=== PATIENT | male | born 1960 | race African-American/Black ===

== ENCOUNTER 2018-01-20 08:00 | Inpatient (IN) | payer OTHER ==
--- OUTSIDE RECORDS SUMMARY | 2018-01-20 08:03 | XMS REPORT | Clinical Summary ---
:1960 Author Organization [facility] Address [address] [place] [address] Phone Care Team Providers Name Role Phone Unavailable Primary Care Provider Unavailable Allergies No Known Allergies Current Medications Prescription Sig. Disp. Refills Start Date End Date Status carvedilol (COREG) Take 25 mg by Active 25 MG tablet mouth 2 (two) times daily with breakfast and dinner. omeprazole Take 40 mg by Active (PRILOSEC) 40 MG mouth as needed. capsule carvedilol (COREG) Take 12.5 mg by 10/12/2017 Discontinued 12.5 MG tablet mouth 2 (two) times daily with breakfast and dinner. Active Problems Problem Noted Date Abdominal pain 08/25/2014 Pancreatic pseudocyst 08/07/2014 Pancreatitis, chronic (HCC) 08/07/2014 Encounters Date Type Specialty Care Team Description 10/19/2017 Hospital Encounter Gastroenterology Hola Malone MD 10/19/2017 Procedure Pass Gastroenterology 10/19/2017 Surgery Gastroenterology Hola Malone UPPER ENDOSCOPY 10/18/2017 Anesthesia Event Gastroenterology Quoc Davison MD 10/12/2017 Hospital Encounter Pre-Admission Testing after 01/19/2017 Social History Tobacco Use Types Packs/Day Years Used Date Current Some Day Smoker Cigarettes 20 Smokeless Tobacco: Never Used Tobacco Cessation: Ready to Quit: Yes; Counseling Given: Yes Comments: 1-3 cigarettes per week Alcohol Use Drinks/Week oz/Week Comments Yes seldom Sex Assigned at Date Recorded Not on file Last Filed Vital Signs Vital Sign Reading Time Taken Blood Pressure 128/81 10/19/2017 5:40 PM [employer] Pulse 66 10/19/2017 5:40 PM [employer] Temperature 36.4 C (97.5 F) 10/19/2017 5:40 PM [employer] Respiratory Rate 20 10/19/2017 5:40 PM [employer] Oxygen Saturation 98% 10/19/2017 5:40 PM [employer] Inhaled Oxygen Concentration - - Weight 142.7 kg (314 lb 9.6 oz) 10/19/2017 3:11 PM [employer] Height 188 cm (6' 2") 10/12/2017 2:44 PM [employer] Body Mass Index 40.39 10/19/2017 3:11 PM [employer] Plan of Treatment Health Maintenance Due Date Last Done Comments INFLUENZA VACCINE 05/16/2018 Implants Implanted Type Area Machine Washer Device Expiration Model / Identifier Date Serial / Lot Advanix Biliary Double Pigtail N/A: Bile [employer] 08/15/2016 / Implanted: Qty: 2 on 08/27/2014 by Hola Malone MD Duct [id number] / [id number] Procedures Procedure Name Priority Date/Time Associated Diagnosis Comments UPPER ENDOSCOPY 10/19/2017 3:30 PM [employer] Pancreatic pseudocyst after 01/19/2017 Results REPORT OF PROCEDURE - ENDOSCOPY URL (10/19/2017 5:32 PM)after 01/19/2017
[2018-01-20 08:42] LABS: Absolute Monocytes 0.7 K/uL (0.1-1.3); Absolute Neutrophil 7.5 K/uL (1.8-8.0); Basophils % 1.2 % (0-1.3); Eosinophils % 2.1 % (0-4.4); Hematocrit 42.9 % (39.6-49.0); Lymphocytes % 19.1 % (15.3-44.8); MCH 30.1 pg (27.0-35.0); MCV 88.9 fL (80-100); MPV 11.7 fL (7.6-11.3); Monocytes % 6.6 % (3.3-12.3); RBC Red Blood Cell Count 4.83 M/uL (4.33-5.43)
[2018-01-20 08:49] LABS: Potassium 3.8 mEq/L (3.6-5.0)
[2018-01-20 08:55] LABS: Albumin 4.1 g/dL (3.2-5.5); Bilirubin Direct 0.2 mg/dL (0-0.2); Bilirubin Total 0.8 mg/dL (0.3-1.2); Protein, Total 7.5 g/dL (6.0-8.3)
--- NOTE | 2018-01-20 10:09 | RAD REPORT ---
EXAM DESCRIPTION: US - Abdomen Exam Limited - 01/20/2018 9:09 am CLINICAL HISTORY: Abdominal pain COMPARISON: CT study June 2016 FINDINGS: No gallstones are identifiable on today's study. No measurable quantity of sludge. There i s no wall thickening or pericholecystic fluid. No suspicious gallbladder finding identifiable. No common duct stone or biliary tree dilatation identified. IMPRESSION: Normal gallbladder and biliary tree ultrasound. No stone or sludge identifiable to matc h patient provided history.
[2018-01-20] MEDS ORDERED: SUCRALFATE 1GM/10ML UCUP PO ONE (11:00)
--- NOTE | 2018-01-20 11:49 | ER ---
Nurse's Notes [facility] Name: Nathaniel Perez Age: 57 yrs Sex: Male : 1960 Arrival Date: 01/20/2018 Time: 08:01 Bed 8 Private MD: Fuad Trujillo H Diagnosis: Acute pancreatitis Presentation: 01/20 08:08 Presenting complaint: Patient states: upset stomach and diarrhea x 2 weeks. Epigastric ss discomfort that radiates towards upper R quadrant x 3-4 days. Pt states, "I think it's my gallbladder.". Transition of care: patient was not received from another setting of care. Onset of symptoms was January 06, 2018. Risk Assessment: Do you want to hurt yourself or someone else? Patient reports no desire to harm self or others. Initial Sepsis Screen: Does the patient meet any 2 criteria? No. Patient's initial sepsis screen is negative. Does the patient have a suspected source of infection? No. Patient's initial sepsis screen is negative. Care prior to arrival: None. 08:08 Method Of Arrival: Ambulatory ss 08:08 Acuity: NIKOLE 3 ss Historical: - Allergies: 08:24 No Known Allergies; ss - Home Meds: 08:24 carvedilol 25 mg oral tab 1 tab 2 times per day [Active]; ss - PMHx: 08:24 Hypertension; Pancreatitis; ss - PSHx: 08:24 pancreatic stents placed and removed; ss - Immunization history:: Adult Immunizations up to date. - Social history:: Smoking status: Patient uses tobacco products, 1 pack per week. - Ebola Screening: : Patient denies exposure to infectious person Patient denies travel to an Ebola-affected area in the 21 days before illness onset. Screenin:16 Abuse screen: Denies threats or abuse. Denies injuries from another. Nutritional sv screening: No deficits noted. Tuberculosis screening: No symptoms or risk factors identified. Fall Risk None identified. Assessment: 08:20 General: Appears in no apparent distress. uncomfortable, well developed, Behavior is sv calm, cooperative, appropriate for age. Pain: Complains of pain in epigastric area and right upper quadrant Pain currently is 4 out of 10 on a pain scale. Is continuous. Neuro: Level of Consciousness is awake, alert, obeys commands, Oriented to person, place, time, situation, Moves all extremities. Full function Gait is steady. Respiratory: Respiratory effort is even, unlabored, Respiratory pattern is regular, symmetrical. GI: Abdomen is round Abd is soft X 4 quads. Derm: Skin is normal. 11:06 Reassessment: Patient appears in no apparent distress at this time. No changes from previously documented assessment. Patient and/or family updated on plan of care and expected duration. Pain level reassessed. Patient is alert, oriented x 3, equal unlabored respirations, skin warm/dry/pink. 12:03 Reassessment: pt updated a bed assignment has been made, pt stated understanding, sg attempt to call report, nurse for 409 unavailable d/t med pass at this time, awaiting a call back from receiving nurse, pt stated understanding, pt remains at bedside. 12:15 Reassessment: Patient appears in no apparent distress at this time. Patient and/or sv family updated on plan of care and expected duration. Pain level reassessed. Patient is alert, oriented x 3, equal unlabored respirations, skin warm/dry/pink. Vital Signs: 08:24 BP 168 / 125; Pulse 91; Resp 16; Temp 97.2(TE); Pulse Ox 98% on R/A; Weight 140.61 kg; Height 6 ft. 2 in. (187.96 cm); Pain 4/10; 09:37 BP 178 / 112; Pulse 70; Resp 18; Pulse Ox 95% ; sv 10:26 BP 167 / 117; Pulse 76; Resp 18; Pulse Ox 98% ; sv 12:14 BP 143 / 102; Pulse 75; Resp 18; Pulse Ox 99% ; sv 08:24 Body Mass Index 39.80 (140.61 kg, 187.96 cm) ED Course: 08:01 Patient arrived in ED. sb2 08:02 Fuad Trujillo DO is Private Physician. sb2 08:09 Irving Alberts MD is Attending Physician. gs 08:14 Susy Dooley, MAURICIO is Primary Nurse. sv 08:16 ED physician to see patient. sv 08:16 Arm band placed on right wrist. sv 08:16 Patient has correct armband on for positive identification. Bed in low position. Pulse sv ox on. NIBP on. 08:22 Triage completed. 08:25 Initial lab(s) drawn, by me, sent to lab. Inserted saline lock: 20 gauge in right sv antecubital area, using aseptic technique. Blood collected. Flushed right antecubital with 5 ml normal saline. 08:54 Patient taken to ultrasound. hr 09:09 US Abdomen Limited In Process Unspecified. EDMS 11:00 CT completed. Patient tolerated procedure well. Patient moved to CT via wheelchair. kw1 Patient moved back from CT. 11:01 CT Abd/Pelvis - Without Cont In Process Unspecified. EDMS 11:11 Awaiting radiology results. sv 11:20 EKG done, by fork lift technician. reviewed by Irving Alberts MD. at1 11:48 Zeb Espinoza MD is Hospitalizing Provider. gs 12:03 No provider procedures requiring assistance completed. Patient admitted, IV remains in sg place. intact, No redness/swelling at site. Administered Medications: 11:06 Drug: CarafATE 1 grams Route: PO; sv 12:09 Follow up: Response: No adverse reaction sv 11:55 Drug: NS 0.9% 1000 ml Route: IV; Rate: 125 ml/hr; Site: right antecubital; sg 11:55 Drug: fentaNYL (PF) 50 mcg Route: IVP; Site: right antecubital; sg 11:55 Drug: Zofran 4 mg Route: IVP; Site: right antecubital; sg Outcome: 11:49 Decision to Hospitalize by Provider. gs 12:15 Admitted to Tele accompanied by tech, family with patient, via wheelchair, room 409, sv with chart, Report called to Amanda MARTÍNEZ 12:15 Condition: stable 12:15 Instructed on the need for admit. 12:37 Patient left the ED. sv Signatures: Dispatcher [employer] EDSusy Sky, RN MAURICIO sv Brad Cobb, MAURICIO MARTÍNEZ sg Xenia Christianson hr Katia Marte, MAURICIO MARTÍNEZ Paula jordan, destination sign repairer EKG Tat1 Irving Alberts MD MD Nuria Moe kw1 Kellie Bowling sb2
--- NOTE | 2018-01-20 11:49 | EDPHYS ---
Physician Documentation [facility] Name: Nathaniel Perez Age: 57 yrs Sex: Male : 1960 Arrival Date: 01/20/2018 Time: 08:01 Bed 8 Private MD: Fuad Trujillo H ED Physician Irving Alberts HPI: 01/20 12:40 This 57 yrs old Black Male presents to ER via Ambulatory with complaints of Abdominal gs Pain, Rib Pain. 12:40 The patient presents with abdominal pain in the epigastric area. Onset: The gs symptoms/episode began/occurred 2 day(s) ago. The symptoms do not radiate. Associated signs and symptoms: Pertinent positives: diarrhea. The symptoms are described as crampy. Modifying factors: The symptoms are alleviated by nothing, the symptoms are aggravated by nothing. Severity of pain: At its worst the pain was moderate in the emergency department the pain is unchanged. The patient has experienced similar episodes in the past, a few times. Historical: - Allergies: 08:24 No Known Allergies; ss - Home Meds: 08:24 carvedilol 25 mg oral tab 1 tab 2 times per day [Active]; ss - PMHx: 08:24 Hypertension; Pancreatitis; ss - PSHx: 08:24 pancreatic stents placed and removed; ss - Immunization history:: Adult Immunizations up to date. - Social history:: Smoking status: Patient uses tobacco products, 1 pack per week. - Ebola Screening: : Patient denies exposure to infectious person Patient denies travel to an Ebola-affected area in the 21 days before illness onset. ROS: 12:40 All other systems are negative. gs Exam: 12:40 Head/Face: Normocephalic, atraumatic. Eyes: Pupils equal round and reactive to light, gs extra-ocular motions intact. Lids and lashes normal. Conjunctiva and sclera are non-icteric and not injected. Cornea within normal limits. Periorbital areas with no swelling, redness, or edema. ENT: Nares patent. No nasal discharge, no septal abnormalities noted. Tympanic membranes are normal and external auditory canals are clear. Oropharynx with no redness, swelling, or masses, exudates, or evidence of obstruction, uvula midline. Mucous membranes moist. Neck: Trachea midline, no thyromegaly or masses palpated, and no cervical lymphadenopathy. Supple, full range of motion without nuchal rigidity, or vertebral point tenderness. No Meningismus. Chest/axilla: Normal chest wall appearance and motion. Nontender with no deformity. No lesions are appreciated. Cardiovascular: Regular rate and rhythm with a normal S1 and S2. No gallops, murmurs, or rubs. Normal PMI, no JVD. No pulse deficits. Respiratory: Lungs have equal breath sounds bilaterally, clear to auscultation and percussion. No rales, rhonchi or wheezes noted. No increased work of breathing, no retractions or nasal flaring. Back: No spinal tenderness. No costovertebral tenderness. Full range of motion. Skin: Warm, dry with normal turgor. Normal color with no rashes, no lesions, and no evidence of cellulitis. MS/ Extremity: Pulses equal, no cyanosis. Neurovascular intact. Full, normal range of motion. Neuro: Awake and alert, GCS 15, oriented to person, place, time, and situation. Cranial nerves II-XII grossly intact. Motor strength 5/5 in all extremities. Sensory grossly intact. Cerebellar exam normal. Normal gait. 12:40 Constitutional: The patient appears alert, awake. 12:40 Abdomen/GI: Palpation: moderate abdominal tenderness, in the epigastric area, right upper quadrant and left upper quadrant. 13:19 ECG was reviewed by the Attending Physician. Vital Signs: 08:24 BP 168 / 125; Pulse 91; Resp 16; Temp 97.2(TE); Pulse Ox 98% on R/A; Weight 140.61 kg; ss Height 6 ft. 2 in. (187.96 cm); Pain 4/10; 09:37 BP 178 / 112; Pulse 70; Resp 18; Pulse Ox 95% ; sv 10:26 BP 167 / 117; Pulse 76; Resp 18; Pulse Ox 98% ; sv 12:14 BP 143 / 102; Pulse 75; Resp 18; Pulse Ox 99% ; sv 08:24 Body Mass Index 39.80 (140.61 kg, 187.96 cm) MDM: 08:20 Patient medically screened. gs 12:40 Differential diagnosis: cholecystitis, Cholelithiasis, pancreatitis, Peptic Ulcer gs Disease. Data reviewed: vital signs, nurses notes. Response to treatment: the patient's symptoms have mildly improved after treatment, and as a result, I will discharge patient. 01/20 08:21 Order name: Basic Metabolic Panel; Complete Time: 10:34 gs 01/20 08:21 Order name: CBC with Diff; Complete Time: 10:34 gs 01/20 08:21 Order name: Hepatic Function; Complete Time: 10:34 gs 01/20 08:21 Order name: Lipase; Complete Time: 10:34 gs 01/20 08:21 Order name: Urine Microscopic Only 01/20 12:10 Order name: CBC with Automated Diff EDMS 01/20 08:21 Order name: US Abdomen Limited; Complete Time: 10:34 01/20 10:40 Order name: CT Abd/Pelvis - Without Cont; Complete Time: 11:54 01/20 12:10 Order name: CBC with Automated Diff EDMS 01/20 12:10 Order name: Comprehensive Metabolic Panel EDMS 01/20 12:10 Order name: Comprehensive Metabolic Panel EDMS 01/20 12:10 Order name: Lipase EDMS 01/20 12:10 Order name: Lipase EDMS 01/20 08:21 Order name: IV Saline Lock; Complete Time: 08:33 01/20 08:21 Order name: Labs collected and sent; Complete Time: 08:33 01/20 11:04 Order name: EKG; Complete Time: 11:04 01/20 11:04 Order name: EKG - Nurse/Tech; Complete Time: 11:10 01/20 11:52 Order name: CONS Physician Consult EDMS 01/20 12:10 Order name: NPO EDMS EC:19 Rate is 83 beats/min. Rhythm is regular. IA interval is normal. QRS interval is normal. gs T waves are Normal. T waves are Flattened. No ST changes noted. Clinical impression: NSR w/ Non-specific ST/T Changes. Interpreted by me. Administered Medications: 11:06 Drug: CarafATE 1 grams Route: PO; sv 12:09 Follow up: Response: No adverse reaction sv 11:55 Drug: NS 0.9% 1000 ml Route: IV; Rate: 125 ml/hr; Site: right antecubital; sg 11:55 Drug: fentaNYL (PF) 50 mcg Route: IVP; Site: right antecubital; sg 11:55 Drug: Zofran 4 mg Route: IVP; Site: right antecubital; sg Disposition: 01/20/18 11:49 Hospitalization ordered by Zeb Espinoza for Inpatient Admission. Preliminary diagnosis is Acute pancreatitis. - Bed requested for Telemetry/MedSurg (Inpatient). - Status is Inpatient Admission. sv - Condition is Stable. - Problem is new. - Symptoms have improved. UTI on Admission? No Signatures: Dispatcher [employer] EDSusy Sky RN RN Demetrice Hargrove RN RN dw Gay, Steven, RN RN Katia Marte RN RN Irving Alberts MD MD gs Corrections: (The following items were deleted from the chart) 11:58 11:49 Hospitalization Ordered by Zeb Espinoza MD for Inpatient Admission. Preliminary diagnosis is Acute pancreatitis. Bed requested for Telemetry/MedSurg (Inpatient). Status is Inpatient Admission. Condition is Stable. Problem is new. Symptoms have improved. UTI on Admission? No. gs 12:37 11:58 01/20/2018 11:49 Hospitalization Ordered by Zeb Espinoza MD for Inpatient sv Admission. Preliminary diagnosis is Acute pancreatitis. Bed requested for Telemetry/MedSurg (Inpatient). Status is Inpatient Admission. Condition is Stable. Problem is new. Symptoms have improved. UTI on Admission? No. dw
[2018-01-20] MEDS ORDERED: ONDANSETRON 4 MG/2 ML VIAL ONE (11:50)
[2018-01-20] MEDS ORDERED: FENTANYL CITR 100 MCG/2 ML ONE (11:50)
[2018-01-20] MEDS ORDERED: NA CHLORIDE 0.9% 1,000 ML ONE (11:51)
--- NOTE | 2018-01-20 11:53 | RAD REPORT ---
EXAM DESCRIPTION: CT - Abdomen Pelvis Wo Contrast - 01/20/2018 11:00 am CLINICAL HISTORY: Epigastric pain, history of pancreatitis, history of of stent across the distal st omach COMPARISON: CT May 2016, CT imaging February 2014. TECHNIQUE: Axial [address] imaging of the abdomen and pelvis was performed without IV contrast. No IV contrast was given because of allergy, abnormal renal function, patient refusal or physician re quest. Oral contrast was given. All CT scans are performed using dose optimization technique as appropriate and may include automated exposure control or mA/KV adjustment according to patient size. FINDINGS: No suspicious findings in the lung bases. Liver and spleen show no suspicious findings. Gallbladder is contracted limiting assessment. No bilia ry tree dilatation. The pancreas shows chronic abnormalities. In the head and uncinate process region there is no discrete mass and no pancreatic dilatation seen. The body and tail of the pancreas show a chronic pancreatic duct dilatation that matches the May 2016 CT study. The patient likely has p ancreatic duct stenosis from prior pancreatitis episode. A new or enlarging mass in the body of the p ancreas is not identifiable. The pancreas abuts the stomach in this region. Patient is believed to ronquillo ve chronic scarring and possible adhesion of the stomach to the pancreas, again from prior pancreatit is. Patient has previously had a stent across the gastric antrum into the duodenal bulb. Currently there is significant edematous/ inflammatory stranding along the anterior margin of the bod y of the pancreas involving the left lateral margin of the stomach. No free air. Multiple small mesen teric lymph nodes are seen in this region. No free air is seen. No abscess identified. The absence of oral and IV contrast are limiting. No hydronephrosis or suspicious renal mass. No significant adrenal finding. Isodense renal masses an d pyelonephritis cannot be excluded in the absence of IV contrast. The urinary bladder is without sig nificant finding. No prostate gland or seminal vesicle abnormality. No significant duodenum abnormality. There is minimal secondary involvement of proximal jejunum where the proximal loops abut the gastric and peripancreatic inflammatory stranding. Moderate stool volume throughout the colon. No primary colon process suspected. No free air or pneumatosis. No bulky lymph adenopathy or omental thickening. Moderately large right inguinal hernia is present. Fat extends into the origin of the left inguinal canal. Patient has a very small umbilical hernia. In the subcutaneous fatty tissues in the right upper buttocks region there is a 4.9 centimeter soft t issue mass at the skin surface. This is new from 2014. No associated calcification. Margins are circu mscribed with no stranding or edema in the adjacent fat. No suspicious bony findings. IMPRESSION: Moderate acute pancreatitis findings seen has edematous/inflammatory stranding along the anterior margin of the pancreas and secondarily involving the stomach. There is a more mild secondar y involvement of proximal jejunum. No abscess or free air. Multiple small mesenteric lymph nodes are present. Probability of a gastric ulcer perforation or primary gastric process are felt to be lower in likelih ood. Patient does appear to have a baseline stricture or narrowing of the gastric antrum region and probab ly has stricture of the pancreatic duct in the body portion. Adhesion or tethering of the stomach to the pancreas suspected. These are all sequela of prior pancreatitis episodes. Approximately 5 centimeter subcutaneous mass in the posterior right upper gluteal region. This is new from 2014. This generally appears nonaggressive but is relatively large. Followup nonemergent sonogr aphy could be performed. Tissue diagnosis could be obtained as warranted. Full assessment is limited is the absence of IV contrast.
[2018-01-20] MEDS ORDERED: SODIUM CHLORIDE 0.9% 10ML INJ IV PRN (12:05)
[2018-01-20] MEDS ORDERED: ACETAMINOPHEN 500 MG TAB PO PRN (12:05)
[2018-01-20] MEDS ORDERED: ONDANSETRON 4 MG/2 ML VIAL IV PRN (12:05)
[2018-01-20] MEDS: NA CHLORIDE 0.9% 1,000 ML IV SCH ×3 (12:40→23:13)
[2018-01-20 13:45] VITALS: BMI 39.8
[2018-01-20] MEDS ORDERED: KCL 20 MEQ/100 mL IVPB 20 MEQ/100 ML BAG IV SCH (14:00)
[2018-01-20] MEDS: ENOXAPARIN 40 MG/0.4 ML SQ SCH (17:12)
[2018-01-20 19:59] LABS: Urine Appearance CLEAR; Urine Bilirubin NEGATIVE (NEG); Urine Blood NEGATIVE (NEG); Urine Color YELLOW; Urine Glucose NEGATIVE (NEG); Urine Protein NEGATIVE (NEG); Urine pH 7.5 (5.0-7.0)
[2018-01-20] MEDS: PANTOPRAZOLE 40 MG INJ IVP SCH (20:06)
[2018-01-20] MEDS: Morphine 2 MG/2 ML SYR IV PRN (20:06)
[2018-01-20 20:26] LABS: Urine Bacteria <20 /HPF (NONE SEEN); Urine RBC <5 /HPF (NONE SEEN)
[2018-01-20 20:27] LABS: Urine Culture Reflex Order NOT NEEDED; Urine Mucus SLIGHT /HPF (NONE SEEN)
[2018-01-21] MEDS: LABETALOL 20 MG/4ML SYRINGE IV PRN ×2 (00:36→08:19)
--- NOTE | 2018-01-21 01:41 | HP ---
Date of Admission: 01/20/2018 Primary Care Physician: Fuad Trujillo D.O. Unishear Operator: Nikhil Mccray M.D., GI. Chief Complaint: Abdominal pain. History Of Present Illness: The patient is a 57-year-old male with past medical history of hypertens ion, chronic pancreatitis secondary to apparent stricture with stent placement 2 years ago, who usual ly follows up with Dr. Mccray with GI: The patient states he was in his usual state of health until the day prior to admission when the patient had sudden onset of epigastric abdominal pain, which was moderate, constant, and progressively worsening. No radiation. The patient denies any fevers or chi lls. Does report some nausea and vomiting. The patient denies any correlation with food. The patie nt does drink. His last drink was approximately one week ago. Denies any blood in the stool or any weight loss. The patient came into the ER for further evaluation. He had no alleviating or aggravat ing factors related to his symptoms. Upon arrival, his vital signs showed elevated blood pressure of 158/125. He was afebrile. His workup revealed elevated lipase level at 256, creatinine was 1.28, w hich seems to be on his baseline. White count was normal. CT scan of the abdomen and pelvis was don e, which showed moderate acute pancreatitis. The patient also had abdominal ultrasound done, which d id not show any acute changes in the gallbladder. No stone or sludge. The patient was seen in the E R. He was awake, alert, oriented x3, in some mild distress. Past Medical History: Hypertension and chronic pancreatitis. Past Surgical History: Left ankle fracture. Allergies: NO KNOWN DRUG ALLERGIES. Medications: List reviewed. Social History: The patient smokes a pack per week. Does drink alcohol, maybe a beer every 6 months . Also drinks mixed drinks every time he goes out. Last drink was approximately one week ago. He s tates he is not a daily drinker. He works at the plant. . Family History: Father had heart disease and hypertension. Mother had brain cancer and radiation th erapy subsequent to that. Review of Systems: An 11-point system reviewed, negative except as per HPI. Physical Examination: Vital Signs: Temperature 97.2, heart rate 91, blood pressure 158/125, respirations 16, O2 98% on emre m air. General: Awake, alert, oriented x3, in some mild distress. Morbidly obese male, is appearing in dis tress. HEENT: Normocephalic and atraumatic, PERRLA. EOMI. Dry mucous membranes. Oropharynx is clear. No rmal dentition. Conjunctiva are anicteric. Neck: Supple. No JVD. Trachea midline. CV: S1, S2. Regular rate and rhythm. Peripheral pulses present. No murmurs. Respiratory: Clear to auscultation bilaterally. No wheezing. No stridor. No use of accessory musc les. Gastrointestinal: Abdomen is soft. Tenderness to palpation in the epigastric region. No rebound or guarding. No palpable masses. No distention. Positive bowel sounds. Extremities: No clubbing, cyanosis, or edema. No calf tenderness. Neuro: Cranial nerves 2 through 12 are intact grossly, 5/5 strength bilateral lower extremities. Se nsation intact to light touch. Speech is normal. Skin: No rashes. Normal skin turgor. Psych: Mood is okay. Affect is full. Insight and judgment are good. Laboratory Data: WBC 10.6, H and H 14.5, 42.9, platelets 115, neutrophils 71%. Sodium 140, potassiu m 3.8, chloride 106, CO2 29, BUN 15, creatinine 1.28, glucose 127, calcium 9.2, magnesium 1.9. Lipas e 256. UA is pending. CT scan of the abdomen and pelvis shows moderate acute pancreatitis finding s uch seen, has edematous and inflammatory stranding along the anterior margin of the pancreas from the secondarily involving the stomach. There is more mild secondary involvement of the proximal jejunum . Multiple small mesenteric lymph nodes. Adhesion or tethering of the stomach to the pancreas is [place] spected. 5 cm mass, subcutaneous, in the posterior right upper gluteal region, this is new from 2014 . Abdominal ultrasound, normal gallbladder and biliary tree ultrasound. No stone or sludge identifi able to match the patient's history. Assessment And Plan: A 57-year-old male with: 1.Acute pancreatitis, recurrent. We will continue with IV fluids, n.p.o. Dr. Mccray has been consu lted. IV pain medications and antiemetics. Likely secondary to stricture. The patient states he ronquillo s had stents in place; however, have not been removed. 2.Morbid obesity. 3.Essential hypertension, uncontrolled. Accelerated hypertension. We will add p.r.n. blood pressur e medications. We will admit the patient to Med-Surg, place as inpatient. Follow up with lipase levels would be a r ecommendation. JEN Voice ID: [id number]
[2018-01-21] MEDS: Morphine 2 MG/2 ML SYR IV PRN (02:46)
[2018-01-21] MEDS: NA CHLORIDE 0.9% 1,000 ML IV SCH ×5 (06:09→20:19)
[2018-01-21 06:41] LABS: Absolute Lymphocytes (CBC) 1.3 K/uL (0.7-4.9); Absolute Monocytes 0.4 K/uL (0.1-1.3); Absolute Neutrophil 3.9 K/uL (1.8-8.0); Basophils % 0.1 % (0-1.3); Eosinophils % 2.7 % (0-4.4); Hematocrit 28.7 % (39.6-49.0); Lymphocytes % 22.4 % (15.3-44.8); MCH 30.1 pg (27.0-35.0); MCV 89.5 fL (80-100); Monocytes % 7.4 % (3.3-12.3)
--- NOTE | 2018-01-21 07:23 | EKG ---
Test Date: 2018-01-20 Test Time: 11:11:04 Exterminator Termite: DIEGO MEASUREMENT RESULTS: Intervals: Rate: 83 [place]: 192 QRSD: 84 QT: 370 QTc: 434 [place] Path: P: 31 [place]: 192 QRS: -1 T: 0 INTERPRETIVE STATEMENTS: Normal sinus rhythm Nonspecific T wave abnormality Abnormal ECG Compared to ECG 07/12/2015 13:46:21 T-wave abnormality now present Sinus tachycardia no longer present Electronically Signed On 01-21-18 07:19:55 CDT by John Paul Gibson
[2018-01-21 07:24] LABS: Blood Morphology Comment NOT SEEN (NOT SEEN); Platelet Estimate DECR; Platelets, Giant FEW; Urine White Blood Cell Casts OK
[2018-01-21] MEDS: PANTOPRAZOLE 40 MG INJ IVP SCH ×2 (08:19→20:19)
[2018-01-21] MEDS ORDERED: HYDRALAZINE HCL 20 MG/ML VIAL IV PRN (12:25)
--- NOTE | 2018-01-21 12:30 | P.PN ---
Subjective Date of Service: 01/21/18 Primary Care Provider: Dr. Trujillo, GI-Dr. Mccray Chief Complaint: Abdominal pain Subjective: Improving Physical Examination - Vital Signs Temperature: 98.4 F Blood Pressure: 165/107 Pulse: 76 Respirations: 18 Pulse Ox (%): 98 - Physical Exam General: Alert, In no apparent distress, Oriented x3, Cooperative HEENT: Atraumatic, Mucous membr. moist/pink Neck: Supple Respiratory: Clear to auscultation bilaterally, Normal air movement Cardiovascular: Normal pulses, Regular rate/rhythm Gastrointestinal: Normal bowel sounds, Soft and benign, Non-distended, No masses , No rebound, No guarding, Tenderness (Pain to the epigastric improved) Musculoskeletal: No erythema, No tenderness, No warmth Integumentary: No tenderness/swelling, No erythema, No warmth, No cyanosis Neurological: Normal speech, Normal strength at 5/5 x4 extr, Normal tone, Normal affect Lymphatics: No axilla or inguinal lymphadenopathy - Studies Medications List Reviewed: Yes Assessment & Plan - Problems (Diagnosis) (1) Hypertension Current Visit: Yes Status: Chronic Plan: Will continue with his medication. Qualifiers: Hypertension type: essential hypertension Qualified Code(s): I10 - Essential (primary) hypertension (2) Anemia Current Visit: Yes Status: Acute Plan: Likely from dilution. Will monitor this closely. Patient with pancreatitis. Qualifiers: Anemia type: other cause (3) GERD (gastroesophageal reflux disease) Current Visit: Yes Status: Suspected Plan: Will discuss with GI. Patient may require EGD and/or ERCP Qualifiers: Esophagitis presence: esophagitis presence not specified Qualified Code(s) : K21.9 - Gastro-esophageal reflux disease without esophagitis (4) Acute pancreatitis Onset Date: 01/21/18 Current Visit: Yes Status: Acute Plan: Will advance diet to clear liquid. Will discuss with GI. Qualifiers: Pancreatitis type: unspecified pancreatitis type Acute pancreatitis complication: unspecified Qualified Code(s): K85.90 - Acute pancreatitis without necrosis or infection, unspecified (5) Abdominal pain Current Visit: No Status: Acute Plan: Continue as above. Will discuss with GI. Patient may require endoscopy evaluation. Qualifiers: Abdominal location: epigastric Qualified Code(s): R10.13 - Epigastric pain (6) Stricture of pancreatic duct Current Visit: Yes Status: Suspected Plan: Will discuss with GI. Patient may require evaluation by endoscopy. (7) Gastric ulcer Current Visit: Yes Status: Suspected Plan: Will discuss with GI. Patient may require endoscopy evaluation. Qualifiers: Gastric ulcer chronicity: acute Gastric ulcer complication status: unspecified whether hemorrhage or perforation present Qualified Code(s): K25.3 - Acute gastric ulcer without hemorrhage or perforation Discharge Plan: Home Plan to discharge in: 48 Hours Time Spent Managing Pts Care (In Minutes): 55
[2018-01-21 12:35] LABS: Hematocrit 37.2 % (39.6-49.0)
[2018-01-21 13:42] LABS: Albumin 3.4 g/dL (3.2-5.5); Bilirubin Total 1.2 mg/dL (0.3-1.2); Protein, Total 6.1 g/dL (6.0-8.3)
[2018-01-21] MEDS ORDERED: PROPOFOL 200 MG/20 ML VIAL IV ONE (14:59)
[2018-01-21] MEDS ORDERED: LIDOCAINE 1% MPF 5 ML VIAL ONE (14:59)
--- NOTE | 2018-01-21 15:17 | ENDO RPT ---
[address], [address] EGD PROCEDURE REPORT EXAM DATE: 01/21/2018 PATIENT NAME: Nathaniel Perez MR#: [id number] BIRTHDATE: 1960 ATTENDING: Nikhil Mccray Dr STATUS: inpatient - 7 [employer] SPECIALIST: Martha Amaya RN and Zofia Carter RN INDICATIONS: The patient is a 57 yr old Male here for an EGD due to mid epigastric abdominal pain, nausea, and abnormal CT abdomen/pelvis revealing possible penetrating gastric ulcer leading to pancreatitis PROCEDURE PERFORMED: EGD with biopsy MEDICATIONS: Per Anesthesia. TOPICAL ANESTHETIC: none CONSENT: The patient understands the risks and benefits of the procedure and understands that these risks include, but are not limited to: sedation, allergic reaction, infection, perforation and/or bleeding. Alternative means of evaluation and treatment include, among others: physical exam, x-rays, and/or surgical intervention. The patient elects to proceed with this endoscopic procedure. DESCRIPTION OF PROCEDURE: During intra-op preparation period all mechanical medical equipment was checked for proper function. Hand hygiene and appropriate measures for infection prevention was taken. Procedure, possible complications, and alternatives including but not limited to the possibility of bleeding, perforation, tear, infection, sepsis, need for surgery, need for blood transfusion, and anesthesia related complications were explained to the patient. After the risks, benefits and alternatives of the procedure were thoroughly explained, Informed consent was verified, confirmed and timeout was successfully executed by the treatment team. The patient was placed in the left lateral position. The patient was anesthetized with topical anesthesia. Through the anesthetized oropharyngeal area, the scope was passed without any difficulty. The EG-[id number] ([id number]) endoscope was introduced through the mouth and advanced to the second portion of the duodenum. Retroflexed views revealed no abnormalities. The gastroscope was then slowly withdrawn and removed. Moderate gastritis was found in the body and the antrum of the stomach. Multiple biopsies were obtained and sent to pathology. Duodenitis was found in the bulb and descending duodenum. ADVERSE EVENTS: There were no complications. IMPRESSIONS: 1. Moderate gastritis in the body and the antrum of the stomach, s/p biopsies 2. Duodenitis in the bulb and descending duodenum RECOMMENDATIONS: 1. await biopsy results 2. acid suppression therapy REPEAT EXAM: Nikhil Mccray Dr eSigned: Nikhil Mccray Dr 01/21/2018 3:16 PM cc: CPT CODES: ICD9 CODES: PATIENT NAME: Nathaniel Perez MR#: [id number]
[2018-01-21] MEDS ORDERED: LABETALOL HCL 100 MG/20 ML ONE (15:37)
[2018-01-21] MEDS ORDERED: LABETALOL HCL 100 MG/20 ML IV ONE (15:44)
[2018-01-21] MEDS ORDERED: NA CHLORIDE 0.9% 1,000 ML IV SCH (16:00)
[2018-01-21] MEDS: ENOXAPARIN 40 MG/0.4 ML SQ SCH (16:29)
[2018-01-21] MEDS ORDERED: MORPHINE 4 MG/ML SYR IV PRN (18:38)
[2018-01-21 19:44] VITALS: O2SAT 98
[2018-01-21] MEDS: CARVEDILOL 25 MG TAB PO SCH (20:18)
--- NOTE | 2018-01-21 21:20 | CON ---
Date of Consultation: 01/21/2018 Reason For Consultation: Possible penetrating gastric ulcer causing pancreatitis. History Of Present Illness: This patient is a 57-year-old male with history of recu rrent pancreatitis, pancreatic pseudocyst with pseudocyst drainage, hypertension. The patient presen torrie to the hospital due to 2 weeks of midepigastric pain, max of 710, now none. Says his pain has b een going off and on over the past 2 weeks with decrease in his appetite. He also had a change in bryan wel habits, diarrhea. However, he has not had a bowel movement since admission. It appears this see ms to be resolved. He has a history of recurrent pancreatitis with a pancreatic pseudocyst requiring stent placement into the pseudocyst with drainage and complications with those procedures. Have ret urned multiple times to tertiary center in [place], [place], for resolvement. The patient has some lisa sea but no emesis. No fevers, chills, night sweats, melena, hematochezia, hematemesis, coffee-ground emesis, hematuria, dysuria, polydipsia, chest pain, short of breath, seizure syncope. Past Medical History: Significant for hypertension, recurrent pancreatitis, pancreatic pseudocyst re quiring stent drainage with complications requiring multiple tertiary center procedures. This finall y resolved. It appears, etiology is recurrent, pancreatitis is not clearly identified. Past Surgery History: Significant for left ankle fractures. Allergies: NKDA. Medications: See list. Social History: Smokes about a pack per week. Alcohol, about beer every 6 months. Has mixed drinks every time he goes out. Last drink was approximately a week ago. Works at the [employer]. He is marrie d. Family History: Father; heart disease, hypertension. Mother with brain cancer and radiation therapy subsequent to that. Review of Systems: The patient has midepigastric pain, some mild nausea. Has some diarrhea, which has resolved, none si nce admission. He denies any emesis, fever, chills, night sweats, chest pain, short of breath, seizu re syncope, melena, hematochezia, cough, coffee-ground emesis, hematuria, dysuria, polydipsia, lower extremity edema, muscle aches, joint aches, backaches, depression, anxiety. Physical Examination: Vital Signs: He had a temperature of 97.8 degrees Fahrenheit, pulse 76, respirations 18, blood press ure 160/116, O2 saturation 98%. He is 6 feet 2 inches, 310 pounds. BMI of 39.8 kg/m2. General: He is obese male, lying in bed, in no acute distress. Sleeping. HEENT: Normocephalic, atraumatic. Anicteric. Pupils equal, round, and reactive to light. Extraocu lar movements are clear. Neck: Supple. No masses. Respirations: Clear to auscultation bilaterally. Cardiac: Regular rate and rhythm. No gallop or rubs. Abdomen: Positive hypoactive bowel sounds. Soft, nondistended, obese. No hepatosplenomegaly noted. No peritoneal or Giordano sign. No rebound. No guarding. Extremities: No clubbing, cyanosis, or edema. 2+ pulses. Neurologic: Alert and oriented x3. Grossly nonfocal. 5/5 motor strength intact to light touch. Laboratory Data: The patient has a white count 5.7, hemoglobin 12.7, hematocrit 37.2, MCV of 90, bassam telet count 99, polys of 64%, lymphocytes 22%, monocytes 7%, eosinophils 3%, basophils 0. The patien t has a sodium 138, potassium 4.0, chloride 105, bicarb 26, BUN of 14, creatinine of 1.2, glucose 82, calcium 8.9, magnesium 1.9, total bilirubin 1.2, AST of 15, ALT of 17, alkaline phosphatase 68, tota l protein 6.4, albumin 3.4, globulin 2.7, lipase 150 down from 256 yesterday. UA on the was nega tive. Ultrasound of abdomen on January 20 revealed normal gallbladder and biliary tree, no stones or s ludge identifiable. CT abdomen and pelvis revealed moderate acute pancreatitis with edematous inflam matory changes around the anterior margin of the pancreas and secondary involving the stomach, more m ild secondary involving the proximal jejunum. Multiple mesenteric lymph nodes are present, probably gastric perforated ulcer or possible less likely as per radiology, some narrowing in the g astric antrum region possibly secondary to adhesions pancreas in light of prior drainage p rocedures via the stomach into the pancreas approximately 5 cm subcutaneous mass in the posterior asp ect of the right upper gluteal region/buttocks on the right side new from 2013. Impression: 1.Possible penetrating ulcer resulted in pancreatitis. The patient with CT scan revealing this poss ibility. The patient had midepigastric pain, 10/10, now down to none. Off and on for the past 2 wee ks. Decreased appetite. Also, he states this pain is different from his prior pancreatitis pain. F eels like gas is pushing through his upper abdomen. He reports with nausea but no emesis. No fevers , chills, melena, hematochezia. Needs [facility] with EGD and continue n.p.o. status with IV fluids, p .r.n. pain medications, antiemetics. 2.Change in bowel habits, diarrhea largely resolved. No stool since admission. This may have been related to the upper GI abdominal pain, pancreatitis issue. 3.Recurrent pancreatitis. He has status post multiple ERCPs and pancreatic pseudocyst drainage of t he stomach with stents from stomach to pseudocyst in [facility], at tertiary center there. Recommendation: 1.Continue n.p.o. status. 2.Continue IV fluids. 3.Continue current pain medications antiemetics. 4.PPI therapy. EGD to assess for possible penetrating gastric ulcer. 5.Monitor labs. ANNE/AIDA Voice ID: [id number] Report ID: [id number]
[2018-01-22] MEDS: NA CHLORIDE 0.9% 1,000 ML IV SCH (06:19)
[2018-01-22 07:33] LABS: Absolute Lymphocytes (CBC) 1.6 K/uL (0.7-4.9); Absolute Monocytes 0.5 K/uL (0.1-1.3); Absolute Neutrophil 4.7 K/uL (1.8-8.0); Basophils % 0.1 % (0-1.3); Eosinophils % 2.8 % (0-4.4); Hematocrit 37.1 % (39.6-49.0); Lymphocytes % 22.8 % (15.3-44.8); MCH 30.6 pg (27.0-35.0); MCV 87.7 fL (80-100); MPV 11.5 fL (7.6-11.3); Monocytes % 7.6 % (3.3-12.3); RBC Red Blood Cell Count 4.23 M/uL (4.33-5.43)
[2018-01-22] MEDS: CARVEDILOL 25 MG TAB PO SCH (08:30)
[2018-01-22] MEDS: PANTOPRAZOLE 40 MG INJ IVP SCH (08:30)
[2018-01-22 08:31] VITALS: BP 164/96
[2018-01-22 08:33] LABS: Albumin 3.4 g/dL (3.2-5.5); Bilirubin Total 1.6 mg/dL (0.3-1.2); Potassium 3.8 mEq/L (3.6-5.0); Protein, Total 6.3 g/dL (6.0-8.3)
[2018-01-22 08:38] VITALS: TEMP 97.8
--- NOTE | 2018-01-22 08:40 | P.DS ---
Admission Date: 01/20/18 Discharge Date: 01/22/18 Primary Care Provider: Dr. Trujillo GI-Dr. Mccray Disposition: ROUTINE DISCHARGE Discharge Condition: GOOD Reason for Admission: Abdominal pain Consultations: GI-Dr. Mccray Procedures: CT scan: IMPRESSION: Moderate acute pancreatitis findings seen has edematous/ inflammatory stranding along the anterior margin of the pancreas and secondarily involving the stomach. There is a more mild secondary involvement of proximal jejunum. No abscess or free air. Multiple small mesenteric lymph nodes are present. Probability of a gastric ulcer perforation or primary gastric process are felt to be lower in likelihood. Patient does appear to have a baseline stricture or narrowing of the gastric antrum region and probably has stricture of the pancreatic duct in the body portion. Adhesion or tethering of the stomach to the pancreas suspected. These are all sequela of prior pancreatitis episodes. Approximately 5 centimeter subcutaneous mass in the posterior right upper gluteal region. This is new from 2014. This generally appears nonaggressive but is relatively large. Followup nonemergent sonography could be performed. Tissue diagnosis could be obtained as warranted. Abdominal ultrasound: Unremarkable Endoscopy: Moderate gastritis to the body and antrum. Biopsies obtained. Duodenitis in the bulb and descending duodenum. - Problems (1) Hypertension Current Visit: Yes Status: Chronic Qualifiers: Hypertension type: essential hypertension Qualified Code(s): I10 - Essential (primary) hypertension (2) Anemia Current Visit: Yes Status: Acute Qualifiers: Anemia type: other cause (3) GERD (gastroesophageal reflux disease) Current Visit: Yes Status: Acute Qualifiers: Esophagitis presence: esophagitis presence not specified Qualified Code(s) : K21.9 - Gastro-esophageal reflux disease without esophagitis (4) Acute pancreatitis Onset Date: 01/21/18 Current Visit: Yes Status: Acute Qualifiers: Pancreatitis type: unspecified pancreatitis type Acute pancreatitis complication: unspecified Qualified Code(s): K85.90 - Acute pancreatitis without necrosis or infection, unspecified (5) Abdominal pain Current Visit: No Status: Acute Qualifiers: Abdominal location: epigastric Qualified Code(s): R10.13 - Epigastric pain (6) Gastritis and duodenitis Current Visit: Yes Status: Acute (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 Patient with history of chronic pancreatitis. CT scan showed pancreatitis with possible gastric ulcer or stricture to the pancreas. Abdominal ultrasound unremarkable. Patient was admitted for further evaluation and treatment. Hospital Course: During the course of the stay patient was evaluated by GI. Gastric ulcer was suspected for the epigastric pain. Pancreatic levels were slightly elevated. Patient has a history of chronic pancreatitis. EGD was performed to further assess. Gastritis and duodenitis was noted. Biopsies of gastrin was obtained. This will be followed up as an outpatient. His diet was advanced. Patient able tolerate his diet. At discharge he did not have any abdominal pain. At discharge patient will continue with Protonix 40 mg 1 pill once daily. Dietary lifestyle education and changes will be provided. Patient will need to follow up with GI as an outpatient to further evaluate. Pancreatitis resolved. Patient with history of hypertension. Medications have been adjusted during his stay. At discharge she will continue with carvedilol 25 mg 1 pill twice daily. Norvasc 10 mg once daily was added for better control. Recommendation is to maintain his blood pressures less 150/80. Further adjustment can be done by his PCP. Patient was found to have a keloid to the right buttocks region. This can be followed up as an outpatient Vital Signs/Physical Exam: Temp Pulse Resp BP Pulse Ox 97.6 F 73 20 164/96 H 99 01/22/18 04:00 01/22/18 08:30 01/22/18 04:00 01/22/18 08:30 01/22/18 04:00 General: Alert, In no apparent distress, Oriented x3, Cooperative HEENT: Atraumatic, Mucous membr. moist/pink Neck: Supple Respiratory: Clear to auscultation bilaterally, Normal air movement Cardiovascular: Normal pulses, Regular rate/rhythm Gastrointestinal: Normal bowel sounds, Soft and benign, Non-distended, No tenderness, No masses, No rebound, No guarding Musculoskeletal: No erythema, No tenderness, No warmth Integumentary: No tenderness/swelling, No erythema, No warmth, No cyanosis Neurological: Normal speech, Normal strength at 5/5 x4 extr, Normal tone, Normal affect Lymphatics: No axilla or inguinal lymphadenopathy Laboratory Data at Discharge: WBC 7.1 K/uL (4.3-10.9) D 01/22/18 07:13 Hgb 13.0 g/dL (13.6-17.9) L 06/09/18 07:13 Hct 37.1 % (39.6-49.0) L 01/22/18 07:13 Plt Count 118 K/uL (152-406) L 01/22/18 07:13 Sodium 137 mEq/L (135-145) 01/22/18 07:13 Potassium 3.8 mEq/L (3.6-5.0) 01/22/18 07:13 BUN 13 mg/dL (6-20) 01/22/18 07:13 Creatinine 1.07 mg/dL (0.61-1.24) 01/22/18 07:13 Glucose 75 mg/dL (65-120) 01/22/18 07:13 Magnesium 1.9 mg/dL (1.8-2.5) 01/20/18 13:12 Total Bilirubin 1.6 mg/dL (0.3-1.2) H 01/22/18 07:13 AST 16 IU/L (10-42) 01/22/18 07:13 ALT 17 IU/L (10-60) 01/22/18 07:13 Alkaline Phosphatase 72 IU/L (42-121) 01/22/18 07:13 Amylase 110 U/L (28-100) H 01/22/18 07:13 Lipase 41 U/L (22-51) 01/22/18 07:13 Home Medications: Carvedilol 25 mg PO BID 01/20/18 Codeine/APAP [Tylenol #3*] 1 tab PO Q6HP PRN 01/20/18 Amlodipine [Norvasc*] 10 mg PO DAILY #30 tab 01/22/18 Pantoprazole [Protonix Tab] 40 mg PO DAILY #30 tab 01/22/18 New Medications: Amlodipine [Norvasc*] 10 mg PO DAILY #30 tab Pantoprazole [Protonix Tab] 40 mg PO DAILY #30 tab Patient Discharge Instructions: 1. Patient will need a follow up his PCP in 1 week to follow up this hospitalization. 2. Patient presented with epigastric pain. Patient found to have acute on chronic pancreatitis. Patient was seen by GI. EGD was done to further assess for possible GERD. EGD showed gastritis and duodenitis. At discharge patient will continue with Protonix 40 mg 1 pill once daily. Recommendation is for the patient follow up with GI as an outpatient to further monitor. Patient without any pain or nausea at discharge. Patient will need to continue with lifestyle modification education for GERD diet. 3. Patient has hypertension. Medications have been adjusted for better control. At discharge he will continue with carvedilol 25 mg 1 pill twice daily. Norvasc 10 mg 1 pill daily has been added for better control. Recommendation is to maintain blood pressures less 150/80. Further adjustment can be done by his PCP. 4. Patient appears to have a keloid to the right buttocks region. This can be followed up as an outpatient. Diet: AHA Activity: Ad irwin Time spent managing pt's care (in minutes): 55
[2018-01-22] MEDS ORDERED: AMLODIPINE 10 MG TAB PO SCH (09:00)
== END 2018-01-22 11:06 | disposition home or self-care (01) | DRG 440 ==
LOC: ER 08:00 → 4TH 12:21
PROVIDERS: ADMIT Family Medicine; ATTEND Family Medicine
PROC: 0DB68ZX Excision of Stomach, Via Natural or Artificial Opening Endoscopic, Diagnostic (ICD-10-PCS; principal; 2018-01-21 14:00)
DX: K85.90 Acute pancreatitis without necrosis or infection, unspecified (principal); D64.9 Anemia, unspecified; I10 Essential (primary) hypertension; K21.9 Gastro-esophageal reflux disease without esophagitis; K29.00 Acute gastritis without bleeding; K29.80 Duodenitis without bleeding; L91.0 Hypertrophic scar; F17.210 Nicotine dependence, cigarettes, uncomplicated; E66.01 Morbid (severe) obesity due to excess calories; Z68.39 Body mass index [BMI] 39.0-39.9, adult
CPT/HCPCS: 36415; 74176; 76705; 80048; 80053; 80076; 81001; 82150; 83690; 83735; 85014; 85018; 85025; 88305; 88312; 93005; 94760; 96374; 96375; 99285; C9113; J0360; J1650; J2270; J2405; J3010; J7030

== ENCOUNTER 2020-11-27 23:21 | Emergency (ER) | payer OTHER ==
--- OUTSIDE RECORDS SUMMARY | 2020-11-27 23:25 | XMS REPORT | Continuity of Care Document ---
:1960 Author Organization [facility] t Address [address] [place] [address] Care Team Providers Name Role Phone DERIC MORRISON Primary Care Physician Unavailable George LYNN, Jhoan Attending Clinician Rita Aguillon MD Attending Clinician Reggie Haney MD Attending Clinician Ced Knox Attending Clinician Payers Payer Name Policy Type Policy Number Effective Date Expiration Date S horacio AETNA MANAGED [id number] 2000 MD Duarte CAREAETNA 00:00:00 [id number] 1-PresentHMO Problems Condition Condition Condition Status Onset Resolution Last Treating Co mments Source Name Details Category Date Date Treatment Clinician Date Hypertensi Hypertensi Disease Active M D on on 11-16 Anderso 00:00: n 00 Type 2 Type 2 Disease Active diabetes diabetes 11-16 Simon o mellitus mellitus 00:00: n with with 00 hyperglyce hyperglyce yovana yovana Malignant Malignant Disease Active Overview: neoplasm neoplasm 2-20 Added Simon o of of 00:00: automatic n connective connective 00 ally from and soft and soft request tissue of tissue of for buttock buttock surgery [id number] Abdominal Abdominal Disease Active [facility] [place] Pancreatic Pancreatic Disease Active 2013-[address] [facility] [address] pseudocyst pseudocyst - Lula kes - 00:00: Medical 00 [place] Pancreatit Pancreatit Disease Active 2013-[address] is, is, 10-08 [facility] - chronic chronic 00:00: Medical 00 [place] Allergies, Adverse Reactions, Alerts This patient has no known allergies or adverse reactions. Family History Family Member Diagnosis Comments Start Date Stop Date Source Natural mother -Brain cancer MD Jeff sanford Social History Social Habit Start Date Stop Date Quantity Comments Source Sex Assigned At [facility] Cigarettes smoked 2018-11-21 2018-11-21 MD Jeff sanford current (pack per 00:00:00 00:00:00 day) - Reported Cigarette 2018-11-21 2018-11-21 MD Duarte pack-years 00:00:00 00:00:00 History of tobacco 2018-10-04 Current smoker MD Duarte use 00:00:00 Tobacco use and 2017-10-20 2017-10-20 Never used [facility] - exposure 00:00:00 00:00:00 [facility] Alcohol intake 2017-10-20 2017-10-20 Current drinker of I [facility] - 00:00:00 00:00:00 alcohol (finding) [facility] Tobacco Comment 2017-10-12 2017-10-12 1-3 cigarettes per C [facility] - 00:00:00 00:00:00 week [facility] Alcohol Comment 2017-10-12 2017-10-12 seldom [facility] - 00:00:00 00:00:00 [facility] Smoking Status Start Date Stop Date Source Former smoker 2018-11-21 00:00:00 2018-11-21 00:00:00 MD Meza son Current some day smoker 2017-10-20 00:00:00 [facility] Medications Ordered Filled Start Stop Current Ordering Indication Dosage Frequency Signature Comments Components Source Medication Medication Date Date Medication? Clinician (SIG) Name Name HYDROcodone Yes Malignant 1{tbl} Take 1 -acetaminop 4-05 neoplasm of tablet by Sonido whitney (Flexenclosure) 00:00: connective mouth n 10 mg-325 00 and soft every 6 mg per tissue of (six) tablet buttock hours as needed for moderate pain or severe pain. cephalexin Yes Malignant 500mg Take 1 MD (KEFLEX) 4-05 neoplasm of capsule A nderso 500 mg 00:00: connective (500 mg) n capsule 00 and soft by mouth tissue of twice buttock daily. insulin 2018- Yes per pt he degludec 3-26 takes 30 Anderso 100 unit/mL 00:00: units n (3 mL) inpn 00 subcutaneo us daily glimepiride 2018- Yes type 2 2mg Take 2 mg MD (AMARYL) 2 2-27 diabetes by mouth A nderso mg tablet 00:00: mellitus twice n 00 daily. metFORMIN 2018- Yes type 2 500mg Take 500 M D (GLUCOPHAGE 2-27 diabetes mg by And erso ) 500 mg 00:00: mellitus mouth n tablet 00 twice daily. amLODIPine Yes 1{tbl} Take 1 MD (NORVASC) 1-22 tablet by Derrick so 10 mg 00:00: mouth n tablet 00 daily. carvedilol Yes 1{tbl} Take 1 MD (COREG) 25 1-22 tablet by Jeff rso mg tablet 00:00: mouth n 00 twice daily. carvedilol Yes 25mg Take [address] (COREG) 25 3-06 by mouth 2 Christiano es - MG tablet 18:19: (two) Medical 22 times Center daily with breakfast and dinner. omeprazole Yes 40mg Take [address] (PRILOSEC) 3-06 by mouth [facility] - 40 MG 18:19: as needed. Medica l capsule 22 Center Procedures This patient has no known procedures. Encounters Start End Encounter Admission Attending Care Care Encounter Source Date/Time Date/Time Type Type Clinicians Facility Department ID 2020-10-08 2020-10-08 Telephone PATT Aguillon [id number] 00:00:00 00:00:00 Rita MULTISPEC [id number] [facility]ALTY [id number] CENTER [id number] [facility] 2020-09-28 2020-09-28 [facility] [id number] 00:00:00 00:00:00 Reggie Latham [id number] Jania [id number] Professio [id number] [facility] Building 2020-09-23 2020-09-23 [facility] [id number] 14:51:43 15:52:17 Visit Rita Latham [id number] Jania [id number] Professio [phone] [facility] Results This patient has no known results.
[2020-11-28 03:07] LABS: SARS-COV-2 RT PCR NEGATIVE (NEGATIVE)
--- NOTE | 2020-11-28 03:10 | EDPHYS ---
Physician Documentation [facility] Name: Nathaniel Perez Age: 60 yrs Sex: Male : 1960 Arrival Date: 11/27/2020 Time: 23:24 Bed 20 Private MD: ED Physician Jose Batista HPI: 11/28 00:37 This 60 yrs old Black Male presents to ER via Ambulatory with complaints of Cough, rn Sneezing, Headache, sweating in sleep alot. 00:37 The patient or guardian reports cough, flu symptoms, low-grade fever, myalgias. Onset: rn The symptoms/episode began/occurred 3 day(s) ago. Severity of symptoms: At their worst the symptoms were mild, in the emergency department the symptoms are unchanged. Modifying factors: The symptoms are alleviated by nothing, the symptoms are aggravated by nothing. Associated signs and symptoms: Pertinent positives: rhinorrhea, Pertinent negatives: fever. The patient has not experienced similar symptoms in the past. The patient has not recently seen a physician. Reports cough, sneezing, myalgias, chills. No sob. + mild cough. Also recently finished bactrim for infected ear pit, that is now draining again but not as bad. . Historical: - Allergies: 00:17 No Known Allergies; bb - Home Meds: 00:17 carvedilol 25 mg Oral tab 1 tab 2 times per day [Active]; amlodipine oral [Active]; bb Metformin Oral [Active]; insulin (long acting) [Active]; - PMHx: 00:17 Hypertension; Pancreatitis; Diabetes - IDDM; bb - PSHx: 00:17 pancreatic stents placed and removed; ankle; hemorrhoid; bb - Immunization history:: Adult Immunizations up to date, Client reports receiving the 2nd dose of the Covid vaccine. - Social history:: Smoking status: Patient reports the use of cigarette tobacco products, denies chronic smoking, but will smoke occasionally, Patient uses alcohol, occasionally. - Family history:: not pertinent. - Hospitalizations: : No recent hospitalization is reported. ROS: 00:37 Constitutional: Negative for fever, chills, and weight loss, Eyes: Negative for injury, rn pain, redness, and discharge, ENT: + right ear pit drainage, + congestion, + sore throat Cardiovascular: Negative for chest pain, palpitations, and edema, Respiratory: Negative for shortness of breath, wheezing, and pleuritic chest pain, Abdomen/GI: Negative for abdominal pain, nausea, vomiting, diarrhea, and constipation, : Negative for injury, bleeding, discharge, and swelling, MS/Extremity: Negative for injury and deformity, Skin: Negative for injury, rash, and discoloration, Neuro: Negative for weakness, numbness, tingling, and seizure. Exam: 00:37 Constitutional: This is a well developed, well nourished patient who is awake, alert, rn and in no acute distress. Head/Face: Normocephalic, atraumatic. Eyes: Pupils equal round and reactive to light, extra-ocular motions intact. Lids and lashes normal. Conjunctiva and sclera are non-icteric and not injected. Cornea within normal limits. Periorbital areas with no swelling, redness, or edema. ENT: Right ear pit with mild clear drainage, no fluctuance, no stridor Neck: Trachea midline, no thyromegaly or masses palpated, and no cervical lymphadenopathy. Supple, full range of motion without nuchal rigidity, or vertebral point tenderness. No Meningismus. Cardiovascular: Regular rate and rhythm. No pulse deficits. Respiratory: No increased work of breathing, no retractions or nasal flaring. Skin: Warm, dry MS/ Extremity: Pulses equal, no cyanosis. Neurovascular intact. Full, normal range of motion. Equal circumference. Neuro: Awake and alert, GCS 15, oriented to person, place, time, and situation. Cranial nerves II-XII grossly intact. Motor strength 5/5 in all extremities. Sensory grossly intact. Cerebellar exam normal. Normal gait. Vital Signs: 00:14 BP 129 / 91; Pulse 74; Resp 16 S; Temp 98.7(O); Pulse Ox 99% on R/A; Weight 136.08 kg bb (R); Height 6 ft. 2 in. (187.96 cm) (R); Pain 0/10; 00:47 BP 133 / 97; Pulse 75; Resp 18; Pulse Ox 97% ; sf 01:00 BP 130 / 95; Pulse 80; Resp 16; Pulse Ox 98% ; sf 01:30 BP 142 / 103; Pulse 70; Resp 18; Pulse Ox 97% ; sf 02:00 BP 137 / 106; Pulse 83; Resp 18; Pulse Ox 97% ; sf 02:15 BP 136 / 107; Pulse 74; Resp 18; Pulse Ox 96% ; sf 00:14 Body Mass Index 38.52 (136.08 kg, 187.96 cm) bb MDM: 00:27 Patient medically screened. rn 03:08 Differential Diagnosis: Influenza Upper Respiratory Infection Viral Syndrome. Data rn reviewed: vital signs, nurses notes, lab test result(s), and as a result, I will discharge patient. Counseling: I had a detailed discussion with the patient and/or guardian regarding: the historical points, exam findings, and any diagnostic results supporting the discharge/admit diagnosis, lab results, the need for outpatient follow up, to return to the emergency department if symptoms worsen or persist or if there are any questions or concerns that arise at home. Special discussion: I discussed with the patient/guardian in detail that at this point there is no indication for admission to the hospital. It is understood, however, that if the symptoms persist or worsen the patient needs to return immediately for re-evaluation. 11/28 03:07 Order name: COVID-19/FLU A+B; Complete Time: 03:08 EDMS Administered Medications: No medications were administered Disposition: 11/28/20 03:08 Discharged to Home. Impression: Acute upper respiratory infection, unspecified, Cellulitis of external ear. - Condition is Stable. - Discharge Instructions: Cellulitis, Adult, Ear Drainage, Upper Respiratory Infection, Adult, Viral Respiratory Infection. - Prescriptions for Clindamycin HCl 300 mg Oral Capsule - take 1 capsule by ORAL route every 6 hours for 10 days; 40 capsule. - Medication Reconciliation Form, Thank You Letter, Antibiotic Education, Prescription Opioid Use form. - Follow up: Private Physician; When: As needed; Reason: Recheck today's complaints, Re-evaluation by your physician. - Problem is new. - Symptoms have improved. Signatures: Dispatcher [employer] EDLizeth Mijares RN RN bb Nieto, Roman, MD MD rn Fitzpatrick, Steven, RN RN sf Corrections: (The following items were deleted from the chart) 02:00 00:38 Influenza Screen (A \T\ B)+BA.LAB.BRZ ordered. EDMS EDMS 02:01 00:38 CORONAVIRUS+MR.LAB.BRZ ordered. EDMS EDMS 03:14 03:08 11/28/2020 03:08 Discharged to Home. Impression: Acute upper respiratory sf infection, unspecified; Cellulitis of external ear. Condition is Stable. Discharge Instructions: Cellulitis, Adult, Ear Drainage, Upper Respiratory Infection, Adult, Viral Respiratory Infection. Prescriptions for Clindamycin HCl 300 mg Oral Capsule - take 1 capsule by ORAL route every 6 hours for 10 days; 40 capsule. and Forms are Medication Reconciliation Form, Thank You Letter, Antibiotic Education, Prescription Opioid Use. Follow up: Private Physician; When: As needed; Reason: Recheck today's complaints, Re-evaluation by your physician. Problem is new. Symptoms have improved. rn
--- NOTE | 2020-11-28 03:10 | ER ---
Nurse's Notes [facility] Name: Nathaniel Perez Age: 60 yrs Sex: Male : 1960 Arrival Date: 11/27/2020 Time: 23:24 Bed 20 Private MD: Diagnosis: Acute upper respiratory infection, unspecified;Cellulitis of external ear Presentation: 11/28 00:14 Chief complaint: Patient states: he received 2nd COVID vaccine on Wednesday and has been bb feeling ever since with sneezing, coughing, weakness. Coronavirus screen: At this time, the client does not indicate any symptoms associated with coronavirus-19. Ebola Screen: No symptoms or risks identified at this time. 00:14 Method Of Arrival: Ambulatory bb 00:16 Initial Sepsis Screen: Does the patient meet any 2 criteria? No. Patient's initial bb sepsis screen is negative. Does the patient have a suspected source of infection? No. Patient's initial sepsis screen is negative. Risk Assessment: Do you want to hurt yourself or someone else? Patient reports no desire to harm self or others. Onset of symptoms was November 24, 2020. 00:16 Acuity: NIKOLE 3 bb Triage Assessment: 00:17 General: Appears in no apparent distress. Behavior is calm, cooperative. Pain: Denies bb pain. Neuro: Level of Consciousness is awake, alert, obeys commands, Oriented to person, place, time, situation. Cardiovascular: Capillary refill < 3 seconds Patient's skin is warm and dry. Respiratory: Reports cough that is Respiratory effort is even, unlabored, Respiratory pattern is regular. GI: No signs and/or symptoms were reported involving the gastrointestinal system. Musculoskeletal: Circulation, motion, and sensation intact. Historical: - Allergies: 00:17 No Known Allergies; bb - Home Meds: 00:17 carvedilol 25 mg Oral tab 1 tab 2 times per day [Active]; amlodipine oral [Active]; bb Metformin Oral [Active]; insulin (long acting) [Active]; - PMHx: 00:17 Hypertension; Pancreatitis; Diabetes - IDDM; bb - PSHx: 00:17 pancreatic stents placed and removed; ankle; hemorrhoid; bb - Immunization history:: Adult Immunizations up to date, Client reports receiving the 2nd dose of the Covid vaccine. - Social history:: Smoking status: Patient reports the use of cigarette tobacco products, denies chronic smoking, but will smoke occasionally, Patient uses alcohol, occasionally. - Family history:: not pertinent. - Hospitalizations: : No recent hospitalization is reported. Screenin:45 Abuse screen: Denies threats or abuse. Denies injuries from another. Nutritional sf screening: No deficits noted. Tuberculosis screening: No symptoms or risk factors identified. Fall Risk None identified. Total Saravia Fall Scale indicates No Risk (0-24 pts). Assessment: 00:45 General: Appears in no apparent distress. comfortable, Behavior is calm, cooperative, sf Reports feeling ill for > 3 days. Pain: Complains of pain in head and face. Neuro: No deficits noted. Level of Consciousness is awake, alert, Oriented to person, place, time, situation. Cardiovascular: No deficits noted. Patient's skin is warm and dry. Respiratory: Reports shortness of breath cough that is Airway is patent Respiratory effort is even, unlabored, Respiratory pattern is regular, symmetrical. GI: No deficits noted. Reports nausea, Patient currently denies abdominal pain, diarrhea, vomiting. : No deficits noted. No signs and/or symptoms were reported regarding the genitourinary system. EENT: Reports nasal congestion nasal discharge. Derm: No deficits noted. No signs and/or symptoms reported regarding the dermatologic system. Musculoskeletal: No deficits noted. No signs and/or symptoms reported regarding the musculoskeletal system. 02:35 Reassessment: Patient appears in no apparent distress at this time. No changes from sf previously documented assessment. Patient and/or family updated on plan of care and expected duration. Pain level reassessed. Patient is alert, oriented x 3, equal unlabored respirations, skin warm/dry/pink. Vital Signs: 00:14 BP 129 / 91; Pulse 74; Resp 16 S; Temp 98.7(O); Pulse Ox 99% on R/A; Weight 136.08 kg bb (R); Height 6 ft. 2 in. (187.96 cm) (R); Pain 0/10; 00:47 BP 133 / 97; Pulse 75; Resp 18; Pulse Ox 97% ; sf 01:00 BP 130 / 95; Pulse 80; Resp 16; Pulse Ox 98% ; sf 01:30 BP 142 / 103; Pulse 70; Resp 18; Pulse Ox 97% ; sf 02:00 BP 137 / 106; Pulse 83; Resp 18; Pulse Ox 97% ; sf 02:15 BP 136 / 107; Pulse 74; Resp 18; Pulse Ox 96% ; sf 00:14 Body Mass Index 38.52 (136.08 kg, 187.96 cm) ED Course: 11/27 23:24 Patient arrived in ED. cf2 11/28 00:14 Lizeth Gutierrez RN is Primary Nurse. bb 00:16 Triage completed. bb 00:17 Arm band placed on Patient placed in waiting room, Patient notified of wait time. bb 00:27 Jose Batista MD is Attending Physician. rn 00:45 Primary Nurse role handed off by Lizeth Gutierrez RN sf 00:45 Brad Owusu, MAURICIO is Primary Nurse. sf 00:45 Patient has correct armband on for positive identification. Bed in low position. Call sf light in reach. Pulse ox on. NIBP on. Door closed. Noise minimized. Visitors limited. Lights dimmed. Verbal reassurance given. 00:45 COVID swab sent to lab. Flu and/or RSV swab sent to lab. sf 03:14 No provider procedures requiring assistance completed. Patient did not have IV access sf during this emergency room visit. Administered Medications: No medications were administered Outcome: 03:08 Discharge ordered by . rn 03:14 Discharged to home ambulatory. sf 03:14 Condition: stable 03:14 Discharge instructions given to patient, Instructed on discharge instructions, follow up and referral plans. medication usage, Demonstrated understanding of instructions, follow-up care, medications, Prescriptions given X 1. 03:14 Patient left the ED. sf Signatures: Lizeth Gutierrez RN RN Jose Batista MD MD rn Frazier, [facility] Brad Owusu RN RN sf Corrections: (The following items were deleted from the chart) 02:00 00:52 Influenza Screen (A \T\ B)+BA.LAB.BRZ drawn and sent. sf EDMS 02:01 00:52 CORONAVIRUS+MR.LAB.BRZ drawn and sent. EDMS
[2020-11-28 03:20] VITALS: TEMP 98.7
[2020-11-28 03:26] VITALS: BP 136/107; O2SAT 96
== END 2020-11-28 03:14 | disposition home or self-care (01) ==
LOC: ER 23:21
DX: J06.9 Acute upper respiratory infection, unspecified (principal); H60.11 Cellulitis of right external ear; Z20.822 Contact with and (suspected) exposure to COVID-19; I10 Essential (primary) hypertension; E11.9 Type 2 diabetes mellitus without complications; F17.210 Nicotine dependence, cigarettes, uncomplicated; Z79.4 Long term (current) use of insulin
CPT/HCPCS: 0240U; 99283

== ENCOUNTER 2024-12-21 12:10 | Emergency (ER) | payer OTHER ==
--- OUTSIDE RECORDS SUMMARY | 2024-12-21 12:13 | XMS REPORT | Clinical Summary ---
Author Name Unknown Organization [facility] Address [address] [place] [address] Care Team Providers Care Rim Buster Name Role Phone Evans Lynn MD Unavailable [phone] Clarke Clemons MD Primary Care Provider [phone] Annemarie Jiang MD Unavailable [phone] Rimma Hitchcock MD Unavailable [phone] Xavier Baxter MD Unavailable Allergies No known active allergies Medications amLODIPine (NORVASC) 10 mg tablet Take 1 tablet by mouth daily. 1 9 Active carvedilol (COREG) 25 mg tablet Take 1 tablet by mouth twice daily. 1 9 Active glimepiride (AMARYL) 2 mg tabletIndicatio ns:type 2 diabetes mellitus Take 2 mg by mouth twice daily. 9 Active metFORMIN (GLUCOPHAGE) 500 mg tabletIndicatio ns:type 2 diabetes mellitus Take 500 mg by mouth twice daily. 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 10/05/2018 Overview (10/05/2018): Added automatically from request for surgery [id number] Surgical History Surgery Date Site/Laterality Comments DE RAD RESECT TUMOR SOFT TISSUE PELVIS & HIP <5 CM 11/17/2018 Right Procedure: RADICAL RESECTION OF MALIGNANT NEOPLASM OF SOFT TISSUE OF RIGHT BUTTOCK; Surgeon: Clarke Clemons MD; Location: MAIN OR; Service: ORTHOPEDIC ONCOLOGY Medical History Medical History Date Comments Hypertension 08/16/2011 Sinusitis 08/16/1986 Pancreatitis 01/14/2015 BMI 40 to 44.9 Diabetes mellitus 09/2018 Family History Medical History Relation Name Comments -Brain cancer Mother Luiza Perez Relation Name Status Comments Mother Luiza Perez Social History Tobacco Use Types Packs/Day Years Used Date Smoking Tobacco: Former Cigarettes 0.3 15 0 10/04/2003 - 10/04/2018 Smokeless Tobacco: Never Tobacco Cessation:Ready to Q uit: Yes Alcohol Use Standard Drinks/Week Comments No 0 (1 standard drink = 0.6 oz pur e alcohol) Sex and Gender Information Value Date Recorded Sex Assigned at Not on file Legal Sex Male 2:06 PM [employer]ENEER [employer]TER Gender Identity Not on file Sexual Orientation Not on file Obstetrics History Plan of Treatment Health Maintenance Due Date Last Done Comments Pneumococcal Vaccine: 50+ Years (1 of 1 - PCV) 012 COVID-19 Vaccine ( - 2023- season) 2024 Influenza Vaccine (Season Ended) 2025 Medical Devices Implanted Type Area [employer] Device Identifier Shelf Expiration Date Model / Serial / Lot Plate Plate Left: Ankle Insurance AET HMO HMO Advance Directives * Full Code (Latest Code Status on File) Date Activated Date Inactivated Comments 11/17/2018 12:09 PM 11/18/2018 2:42 PM Care Teams Rim Buster Relationship Specialty Start Date End Date Evans Lynn MD [address] [place] [id number] [email or web address] PCP - External Referring General Surgery 09/21/18 Clarke Clemons MD [address] [place] [id number] [email or web address] PCP - General Orthopedic Surgery 09/27/18 Annemarie Jiang MD [address] [place] [id number] [email or web address] Consulting Physician Internal Medicine 10/18/18 Rimma Hitchcock MD [address] [place] [id number] [email or web address] Consulting Physician Radiation Oncology 12/19/18 Xavier Baxter MD [address] [place] [id number] [email or web address] Consulting Physician Internal Medicine 11/16/18
[2024-12-21] MEDS ORDERED: ONDANSETRON 4 MG/2 ML VIAL ONE (12:39)
[2024-12-21] MEDS ORDERED: MORPHINE 4 MG/ML SYR ONE ×2 (12:39→15:37)
[2024-12-21] MEDS ORDERED: NA CHLORIDE 0.9% 1,000 ML ONE ×2 (12:39→15:38)
[2024-12-21 13:10] LABS: Absolute Eosinophils 0.1 K/uL (0-0.5); Absolute Lymphocytes (CBC) 1.4 K/uL (0.7-4.9); Absolute Monocytes 0.6 K/uL (0.1-1.3); Absolute Neutrophil 5.9 K/uL (1.8-8.0); Basophils % 0.4 % (0-1.3); Eosinophils % 0.8 % (0-4.4); Hemoglobin 12.1 g/dL (13.6-17.9); Lymphocytes % 17.6 % (15.3-44.8); MCH 30.8 pg (27.0-35.0); MCHC 34.7 g/dL (32.0-36.0); MCV 88.9 fL (80-100); MPV 11.4 fL (7.6-11.3); Monocytes % 7.7 % (3.3-12.3); Neutrophils % 73.5 % (41.7-73.7); Platelets 160 thou/uL (152-406); RBC Red Blood Cell Count 3.93 M/uL (4.33-5.43); Red Cell Distribution Width 14.1 % (12.1-15.2)
[2024-12-21 13:33] LABS: ALT/SGPT 15 U/L (16-61); Albumin 3.3 g/dL (3.4-5.0); Albumin/Globulin Ratio 0.8 (1.1-1.8); Alkaline Phosphatase 68 U/L (45-117); BUN Blood Urea Nitrogen 15 mg/dL (7-18); Bicarbonate 26 mEq/L (21-32); Bilirubin Total 0.4 mg/dL (0.2-1.0); Glomerular Filtration Rate 53 ml/min (=/>90); Lipase 45 U/L (13-75); Protein, Total 7.3 g/dL (6.4-8.2); Sodium Level 134 mEq/L (136-145)
[2024-12-21 13:34] LABS: AST/SGOT < 10 U/L (15-37)
[2024-12-21 13:36] LABS: Glucose Level 557 mg/dL (74-106)
[2024-12-21] MEDS ORDERED: INSULIN REGULAR (HUMAN) 100 UNIT/ML ONE (14:40)
--- NOTE | 2024-12-21 14:58 | RAD REPORT ---
EXAMINATION: CT Abdomen Pelvis W Contrast CLINICAL INDICATION: Male, 64 years old. ABD PAIN TECHNIQUE: CT abdomen and pelvis was performed, after the administration of IV contrast, as per [facility] protocol. Axial, sagittal and coronal reconstructions were obtained. One or more of the following dose reduction techniques were used: Automated exposure control, adjustment of the mA and k V according to patient size, and iterative reconstruction. Unless otherwise specified, incidental findings do not require dedicated imaging follow-up. COMPARISON: 05/19/2022 FINDINGS: LOWER CHEST: The visualized lung bases are clear. LIVER: Normal in size and contour. No focal lesion. BILIARY SYSTEM: No suspicious abnormalities. SPLEEN: Normal size. No focal lesion. PANCREAS: No mass or fluid collections. Multifocal dilation of the pancreatic duct along the body thr ough tail of the pancreas. Swelling of this segment with adjacent fat stranding, new since the prior exam. No regional hypoenhancement.. ADRENALS: Normal; no mass. KIDNEYS: Normal size and contour. No hydronephrosis. Stable left lower pole parapelvic 3.5 cm cyst. 3 mm focus of calcification along the lateral wall of the cyst, could represent cyst wall calcification versus a stable nonobstructive calculus. URINARY BLADDER: Unremarkable. GASTROINTESTINAL TRACT: No evidence of free air, significant intra-abdominal free fluid, bowel obstru ction or abscess. APPENDIX: Normal appendix. LYMPH NODES: No lymphadenopathy. MUSCULOSKELETAL: No acute or suspicious osseous abnormality. ADDITIONAL FINDINGS: Right supraumbilical and right inguinal small hernias containing fat. IMPRESSION: Findings of acute pancreatitis involving the body through tail of the pancreas. No peripancreatic col lections or regional hypoenhancement to suggest necrosis. Other incidental findings as above. THIS REPORT CONTAINS FINDINGS THAT MAY BE CRITICAL TO PATIENT CARE. The findings were verbally commun icated via telephone to Steven Parkinson on 12/21/2024 2:51 PM.
--- NOTE | 2024-12-21 15:31 | EDPHYS ---
Physician Documentation [facility] Name: Nathaniel Perez Age: 64 yrs Sex: Male : 1960 Arrival Date: 12/21/2024 Time: 12:10 Bed 16 Private MD: ED Physician Steven Parkinson HPI: 12/21 13:40 This 64 yrs old Black Male presents to ER via Ambulatory with complaints of Abdominal sp3 Pain, Vomiting. 13:40 64-year-old male with history of diabetes, hypertension, prior pancreatitis with sp3 history of stent placement who is not an alcohol user now presents to the ED with chief complaint vomiting and epigastric abdominal pain. Symptoms were going on for the last 2 days. No blood or coffee-ground's in his emesis. Patient denies any diarrhea. Review of systems negative for fever, headache, neck pain, chest pain, shortness of breath, back pain, lower abdominal pain, diarrhea, syncope, near syncope, bleeding, or any other signs or symptoms on ROS at this time.. Historical: - Allergies: 12:27 No Known Allergies; iw - PMHx: 12:27 Diabetes - IDDM; Hypertension; Pancreatitis; iw - PSHx: 12:27 pancreatic stent; iw - Immunization history:: Adult Immunizations not up to date. - Infectious Disease History:: Denies. - Social history:: Smoking status: Patient reports the use of cigarette tobacco products, smokes one-half pack cigarettes per day. ROS: 13:40 Constitutional: Negative for fever, chills, and weight loss, Eyes: Negative for injury, sp3 pain, redness, and discharge, ENT: Negative for injury, pain, and discharge, Neck: Negative for injury, pain, and swelling, Cardiovascular: Negative for chest pain, palpitations, and edema, Respiratory: Negative for shortness of breath, cough, wheezing, and pleuritic chest pain, Back: Negative for injury and pain, MS/Extremity: Negative for injury and deformity, Skin: Negative for injury, rash, and discoloration, Neuro: Negative for headache, weakness, numbness, tingling, and seizure, Psych: Negative for depression, anxiety, suicide ideation, homicidal ideation, and hallucinations, Allergy/Immunology: Negative for hives, rash, and allergies, Endocrine: Negative for neck swelling, polydipsia, polyuria, polyphagia, and marked weight changes, Hematologic/Lymphatic: Negative for swollen nodes, abnormal bleeding, and unusual bruising, 13:40 All other systems are negative, Exam: 13:41 Constitutional: This is a well developed, well nourished patient who is awake, alert, sp3 and in no acute distress. Head/Face: Normocephalic, atraumatic. Eyes: Pupils equal round and reactive to light, extra-ocular motions intact. Lids and lashes normal. Conjunctiva and sclera are non-icteric and not injected. Cornea within normal limits. Periorbital areas with no swelling, redness, or edema. Neck: Trachea midline, no thyromegaly or masses palpated, and no cervical lymphadenopathy. Supple, full range of motion without nuchal rigidity, or vertebral point tenderness. No Meningismus. Chest/axilla: Normal chest wall appearance and motion. Nontender with no deformity. No lesions are appreciated. Cardiovascular: Regular rate and rhythm with a normal S1 and S2. No gallops, murmurs, or rubs. Normal PMI, no JVD. No pulse deficits. Respiratory: Lungs have equal breath sounds bilaterally, clear to auscultation and percussion. No rales, rhonchi or wheezes noted. No increased work of breathing, no retractions or nasal flaring. Back: No spinal tenderness. No costovertebral tenderness. Full range of motion. Skin: Warm, dry with normal turgor. Normal color with no rashes, no lesions, and no evidence of cellulitis. MS/ Extremity: Pulses equal, no cyanosis. Neurovascular intact. Full, normal range of motion. Neuro: Awake and alert, GCS 15, oriented to person, place, time, and situation. Cranial nerves II-XII grossly intact. Motor strength 5/5 in all extremities. Sensory grossly intact. Cerebellar exam normal. Normal gait. Psych: Awake, alert, with orientation to person, place and time. Behavior, mood, and affect are within normal limits. 13:41 Abdomen/GI: Epigastric pain to palpation without peritoneal signs, rebound or guarding., 13:42 ECG was reviewed by the Attending Physician. EKG demonstrates normal sinus rhythm at 83 sp3 bpm with first-degree AV block with WV interval of 218 ms, leftward axis, normal QRS and nonspecific diffuse ST/T changes without evidence of acute ischemia. Vital Signs: 12:26 BP 118 / 92; Pulse 98; Resp 18; Temp 98(O); Pulse Ox 100% on R/A; Weight 129.27 kg; iw Height 6 ft. 2 in. ; Pain 3/10; 13:00 BP 129 / 84; Pulse 88; Resp 15; Pulse Ox 96% on R/A; cm10 15:47 BP 119 / 71; Pulse 81; Resp 15; Pulse Ox 98% on R/A; cm10 16:52 BP 107 / 72; Pulse 71; Resp 16; Pulse Ox 96% ; cm10 12:26 Body Mass Index 36.59 (129.27 kg, 187.96 cm) iw 12:26 Pain Scale: Adult iw MDM: 12:39 Medical Screening Exam initiated sp3 13:41 Data reviewed: vital signs, nurses notes, old medical records, lab test result(s), EKG, sp3 radiologic studies. ED course: 64-year-old male with epigastric abdominal pain. Differential diagnosis includes recurrent pancreatitis, other biliary pathology, gastritis, other abdominal pathology, ACS, viral illness, among others. Workup will be broad and include EKG, general labs including lipase, and CT scan of the abdomen pelvis with IV contrast. Pain and nausea medications along with IV fluids will be administered as needed. Final disposition pending workup patient course.. 15:29 ED course: Labs within normal limits and lipase of 45. CT demonstrates inflammation of sp3 the pancreas. I spoke to Dr. Miguel who was unavailable to come to the ED and stated if he needs to be admitted to transfer him. Otherwise he can see him in clinic. I discussed all these options with the patient and due to patient stating that he feels significantly better than he did when he first got here, he would like to be discharged and we will see him in the office next week. We will give 1 additional normal saline and 1 more round of morphine prior to his discharge. Will ensure p.o. challenge is okay. He was discharged on tramadol and ondansetron.. 12/21 12:40 Order name: CBC with Diff; Complete Time: 13:39 sp3 12/21 12:40 Order name: CMP; Complete Time: 13:39 sp3 12/21 12:40 Order name: Lipase; Complete Time: 13:39 sp3 12/21 12:40 Order name: Lactate w/ 2H reflex if indic.; Complete Time: 13:39 sp3 12/21 12:40 Order name: Troponin High Sensitivity; Complete Time: 13:39 sp3 12/21 14:48 Order name: Glucose, Ancillary Testing; Complete Time: 14:50 EDMS 12/21 17:07 Order name: Glucose, Ancillary Testing; Complete Time: 17:09 EDMS 12/21 12:40 Order name: CT Abd/Pelvis - IV Contrast Only; Complete Time: 15:15 sp3 12/21 12:40 Order name: IV Saline Lock; Complete Time: 13:00 sp3 12/21 12:40 Order name: Labs collected and sent; Complete Time: 13:00 sp3 12/21 12:40 Order name: EKG - Nurse/Tech; Complete Time: 13:03 3 12/21 15:28 Order name: PO challenge; Complete Time: 15:53 sp3 Administered Medications: 13:00 Drug: Ondansetron IVP 4 mg IVP once; over 2 minutes Route: IVP; Site: left antecubital; 10 13:00 Drug: NS 0.9% IV 1000 ml IV at 1 bolus Per protocol; to be given as a bolus over 60 cm10 minutes Route: IV; Rate: 1 bolus; Site: left antecubital; 16:28 Follow up: Response: No adverse reaction; IV Status: Completed infusion; IV Intake: cm10 1000ml 13:01 Drug: morphine IVP or IV 4 mg IVP once over 4 mins Route: IVP; Infused Over: 4 mins; cm10 Site: left antecubital; 13:30 Follow up: Response: No adverse reaction [facility] 14:43 Drug: Insulin Regular Human IVP 10 units IVP once {Co-Signature: [email or web address] (Amanda Santos cm10 RN).} Route: IVP; Site: left antecubital; 16:29 Follow up: Response: No adverse reaction [facility] 15:53 Drug: Piperacillin-Tazobactam IVPB 3.375 grams IVPB once over 60 mins; (mix in NS 100 jb4 mL) Route: IVPB; Infused Over: 60 mins; Site: left antecubital; 17:01 Follow up: Response: No adverse reaction; IV Status: Completed infusion; IV Intake: cm10 100ml 15:53 Drug: NS 0.9% IV 1000 ml IV at 1 bolus Per protocol; to be given as a bolus over 60 jb4 minutes Route: IV; Rate: 1 bolus; Site: left antecubital; 17:26 Follow up: Response: No adverse reaction; IV Status: Completed infusion; IV Intake: cm10 1000ml 15:53 Drug: morphine IVP or IV 4 mg IVP once over 4 mins Route: IVP; Infused Over: 4 mins; jb4 Site: left antecubital; 17:01 Follow up: Response: No adverse reaction cm10 Point of Care Testing: Blood Glucose: 16:56 Blood Glucose: 301 mg/dL; cm10 Ranges: Critical Glucose Levels:Adult <50 mg/dl or >400 mg/dl <40 mg/dl or >180 mg/dl Disposition Summary: 12/21/24 15:31 Discharge Ordered Notes: Location: Home sp3 Condition: Stable sp3 Diagnosis - Pancreatitis, vomiting, dehydration sp3 Followup: sp3 - With: Private Physician - When: Upon discharge from the Emergency Department - Reason: If symptoms return Discharge Instructions: - Discharge Summary Sheet sp3 - Chronic Pancreatitis sp3 Forms: - Medication Reconciliation Form sp3 - Antibiotic Education sp3 - Prescription Opioid Use sp3 - Patient Portal Instructions sp3 - Leadership Thank You Letter sp3 Prescriptions: - Tramadol 50 mg Oral Tablet - take 1 tablet ORAL route every 8 hours as needed; 12 tablet; Refills: 0, sp3 Product Selection Permitted - ondansetron 8 mg Oral Tablet,disintegrating - take 1 tablet ORAL route every 12 hours; 20 tablet; Refills: 0, Product sp3 Selection Permitted Signatures: Dispatcher [employer] EDMaria Luz Norman RN RN iw Bryson, James RN RN jb4 Steven Parkinson MD MD sp3 Maisha Lucero RN RN cm10 Amanda Santos RN kj2 Corrections: (The following items were deleted from the chart) 12:40 12:40 CBC+H.LAB.BRZ ordered. EDMS EDMS 12:40 12:40 COMPREHENSIVE METABOLIC PANEL+C.LAB.BRZ ordered. EDMS EDMS 12:40 12:40 LIPASE+C.LAB.BRZ ordered. EDMS EDMS 12:40 12:40 LACTATE+C.LAB.BRZ ordered. EDMS EDMS 12:40 12:40 Troponin High Sensitivity+C.LAB.BRZ ordered. EDMS EDMS 12:40 12:40 Abdomen Pelvis W Con+CT.RAD.BRZ ordered. EDMS EDMS
--- NOTE | 2024-12-21 15:31 | ER ---
Nurse's Notes [facility] [place] Name: Nathaniel Perez Age: 64 yrs Sex: Male : 1960 Arrival Date: 12/21/2024 Time: 12:10 Bed 16 Private MD: Diagnosis: Pancreatitis, vomiting, dehydration Presentation: 12/21 12:26 Chief complaint: Patient states: vomiting, mid abd pain since Wednesday last week, hx of iw pancreatitis, feels same as previous flare up . Coronavirus screen: At this time, the client does not indicate any symptoms associated with coronavirus-19. Ebola Screen: No symptoms or risks identified at this time. Initial Sepsis Screen: Does the patient meet any 2 criteria? No. Patient's initial sepsis screen is negative. Does the patient have a suspected source of infection? No. Patient's initial sepsis screen is negative. Risk Assessment: Do you want to hurt yourself or someone else? Patient reports no desire to harm self or others. Onset of symptoms was December 15, 2024. 12:26 Method Of Arrival: Ambulatory iw 12:26 Acuity: NIKOLE 3 iw Historical: - Allergies: 12:27 No Known Allergies; iw - PMHx: 12:27 Diabetes - IDDM; Hypertension; Pancreatitis; iw - PSHx: 12:27 pancreatic stent; iw - Immunization history:: Adult Immunizations not up to date. - Infectious Disease History:: Denies. - Social history:: Smoking status: Patient reports the use of cigarette tobacco products, smokes one-half pack cigarettes per day. Screenin:01 [facility] ED Fall Risk Assessment (Adult) History of falling in the last 3 months, cm10 including since admission No falls in past 3 months (0 pts) Confusion or Disorientation No (0 pts) Intoxicated or Sedated No (0 pts) Impaired Gait No (0 pts) Mobility Assist Device Used No (0 pt) Altered Elimination No (0 pt) Score/Fall Risk Level 0 - 2 = Low Risk Oriented to surroundings, Maintained a safe environment, Hourly rounding (assess needs \T\ fall precautionary measures) done. Abuse screen: Denies threats or abuse. Denies injuries from another. Nutritional screening: No deficits noted. Tuberculosis screening: No symptoms or risk factors identified. Assessment: 13:02 General: Appears in no apparent distress. uncomfortable, Behavior is calm, cooperative. cm10 Pain: Complains of pain in abdomen Pain does not radiate. Pain currently is 3 out of 10 on a pain scale. Neuro: No deficits noted. Level of Consciousness is awake, alert, obeys commands, Oriented to person, place, time, situation, Appropriate for age. Respiratory: No deficits noted. Airway is patent Respiratory effort is even, unlabored, Respiratory pattern is regular, symmetrical. GI: Reports upper abdominal pain, diarrhea, nausea. 16:29 Reassessment: Patient appears in no apparent distress at this time. Patient and/or cm10 family updated on plan of care and expected duration. Pain level reassessed. Patient is alert, oriented x 3, equal unlabored respirations, skin warm/dry/pink. Vital Signs: 12:26 BP 118 / 92; Pulse 98; Resp 18; Temp 98(O); Pulse Ox 100% on R/A; Weight 129.27 kg; iw Height 6 ft. 2 in. ; Pain 3/10; 13:00 BP 129 / 84; Pulse 88; Resp 15; Pulse Ox 96% on R/A; cm10 15:47 BP 119 / 71; Pulse 81; Resp 15; Pulse Ox 98% on R/A; cm10 16:52 BP 107 / 72; Pulse 71; Resp 16; Pulse Ox 96% ; cm10 12:26 Body Mass Index 36.59 (129.27 kg, 187.96 cm) iw 12:26 Pain Scale: Adult iw ED Course: 12:14 Patient arrived in ED. al6 12:15 Steven Parkinson MD is Attending Physician. sp3 12:27 Triage completed. iw 12:28 Arm band placed on. iw 12:40 Maisha Lucero, RN is Primary Nurse. cm10 13:00 CBC with Diff Sent. cm10 13:00 CMP Sent. cm10 13:00 Lipase Sent. cm10 13:00 Troponin High Sensitivity Sent. cm10 13:00 Lactate w/ 2H reflex if indic. Sent. cm10 13:01 Patient has correct armband on for positive identification. Bed in low position. Call cm10 light in reach. Side rails up X 1. Pulse ox on. NIBP on. 13:01 Initial lab(s) drawn, by me, sent to lab. Inserted saline lock: 20 gauge in left cm10 antecubital area, using aseptic technique. Blood collected. Flushed with 10 mL NS. 13:03 EKG done, by ED staff, reviewed by Steven Parkinson MD. cm10 13:37 CT Abd/Pelvis - IV Contrast Only In Process Unspecified. EDMS 17:26 No provider procedures requiring assistance completed. IV discontinued, intact, cm10 bleeding controlled, No redness/swelling at site. Pressure dressing applied. 17:27 Provided Education on: Follow-up instructions. cm10 Administered Medications: 13:00 Drug: Ondansetron IVP 4 mg IVP once; over 2 minutes Route: IVP; Site: left antecubital; cm10 13:00 Drug: NS 0.9% IV 1000 ml IV at 1 bolus Per protocol; to be given as a bolus over 60 cm10 minutes Route: IV; Rate: 1 bolus; Site: left antecubital; 16:28 Follow up: Response: No adverse reaction; IV Status: Completed infusion; IV Intake: cm10 1000ml 13:01 Drug: morphine IVP or IV 4 mg IVP once over 4 mins Route: IVP; Infused Over: 4 mins; cm10 Site: left antecubital; 13:30 Follow up: Response: No adverse reaction cm10 14:43 Drug: Insulin Regular Human IVP 10 units IVP once {Co-Signature: [email or web address] (Amanda Santos cm10 RN).} Route: IVP; Site: left antecubital; 16:29 Follow up: Response: No adverse reaction cm10 15:53 Drug: Piperacillin-Tazobactam IVPB 3.375 grams IVPB once over 60 mins; (mix in NS 100 jb4 mL) Route: IVPB; Infused Over: 60 mins; Site: left antecubital; 17:01 Follow up: Response: No adverse reaction; IV Status: Completed infusion; IV Intake: cm10 100ml 15:53 Drug: NS 0.9% IV 1000 ml IV at 1 bolus Per protocol; to be given as a bolus over 60 jb4 minutes Route: IV; Rate: 1 bolus; Site: left antecubital; 17:26 Follow up: Response: No adverse reaction; IV Status: Completed infusion; IV Intake: cm10 1000ml 15:53 Drug: morphine IVP or IV 4 mg IVP once over 4 mins Route: IVP; Infused Over: 4 mins; jb4 Site: left antecubital; 17:01 Follow up: Response: No adverse reaction cm10 Medication: 17:27 VIS not applicable for this client. cm10 Point of Care Testing: Blood Glucose: 16:56 Blood Glucose: 301 mg/dL; cm10 Ranges: Intake: 16:28 IV: 1000ml; Total: 1000ml. cm10 17:01 IV: 100ml; Total: 1100ml. cm10 17:26 IV: 1000ml; Total: 2100ml. cm10 Outcome: 15:31 Discharge ordered by MD. rodriguez 17:26 Discharged to home ambulatory, with significant other, cm10 17:26 Condition: good 17:26 Discharge instructions given to patient, Instructed on discharge instructions, follow up and referral plans. medication usage, Demonstrated understanding of instructions, follow-up care, medications, Prescriptions given X 2, 17:27 Patient left the ED. cm10 Signatures: Dispatcher [employer] EDMS Maria Luz Plata RN RN iw Sander Chacko RN RN jb4 Steven Parkinson MD MD sp3 Maisha Lucero RN RN cm10 Leandra Lyles al6 Amanda Santos RN kj2 Corrections: (The following items were deleted from the chart) 12:29 12:26 BP 118 / 92; Pulse 98bpm; Resp 18bpm; Pulse Ox 100% RA; 129.27 kg; Height 6 ft. 2 iw in.; BMI: 36.5; Pain 3/10, Adult; iw
[2024-12-21] MEDS ORDERED: NA CHLORIDE 0.9% 100 ML ONE (15:37)
[2024-12-21] MEDS ORDERED: PIPERACIL/TAZO 3.375 GM VIAL IV ONE (15:38)
[2024-12-21 17:34] VITALS: TEMP 98
[2024-12-21 17:38] VITALS: BP 107/72; O2SAT 96
--- NOTE | 2024-12-25 12:11 | EKG ---
Test Date: 2024-12-21 Test Time: 13:06:33 Lay Midwife: REINA MEASUREMENT RESULTS: Intervals: Rate: 83 PA: 218 QRSD: 88 QT: 352 QTc: 413 [employer]: P: 81 PA: 218 QRS: -13 T: -17 INTERPRETIVE STATEMENTS: Sinus rhythm with 1st degree AV block Nonspecific T wave abnormality Abnormal ECG Compared to ECG 01/20/2018 11:11:04 First degree AV block now present T-wave abnormality still present Electronically Signed On 12-25-24 12:08:17 CDT by Sherif Jaquez
== END 2024-12-21 17:27 | disposition home or self-care (01) ==
LOC: ER 12:10
DX: K85.90 Acute pancreatitis without necrosis or infection, unspecified (principal); E86.0 Dehydration; F17.210 Nicotine dependence, cigarettes, uncomplicated; E11.9 Type 2 diabetes mellitus without complications; I10 Essential (primary) hypertension; Z96.89 Presence of other specified functional implants
CPT/HCPCS: 96365; 96361; 93005; 85025; 36415; 82947 ×2; 83605; 84484; 83690; 80053; 74177; 96375; 99284; Q9967; J2543; J2405; J1815; J7030 ×2